=== PATIENT | male | born 1980 | race Caucasian/White ===

== ENCOUNTER → 2019-05-16 | Outpatient (CLI) | payer OTHER | LOC: COL.RAD 13:46 | DX: M25.461 Effusion, right knee (principal); Z98.890 Other specified postprocedural states ==

== ENCOUNTER → 2019-06-03 | Outpatient (CLI) | payer OTHER | LOC: COL.RAD 07:15 | DX: M48.02 Spinal stenosis, cervical region (principal); M50.10 Cervical disc disorder with radiculopathy, unspecified cervical region ==